=== PATIENT | female | born 1985 | race Caucasian/White ===

== ENCOUNTER 2025-04-17 20:13 | Emergency (ER) | payer OTHER, SELFPAY ==
[2025-04-17 20:22] VITALS: BP 114/84
--- NOTE | 2025-04-17 20:38 | ED.SKININJ ---
HPI-Injury
General
Chief Complaint: Bite
Time Seen by Provider: 04/17/25 20:38
History of Present Illness-Injury
Is this injury a work related problem?: No
Is pt an associate of [facility]?: No
Initial Injury comments:
FOCUSED PAST MEDICAL HISTORY
- No significant past medical history
REVIEW OF OLD RECORDS
- No old records available for review in [facility]
Note:
CHIEF COMPLAINT(S)
Dog bite to the upper lip.
HISTORY OF PRESENT ILLNESS
The patient is a 39-year-old female who presented to the emergency department following a dog bite from the family dog. The injury was described as uncharacteristic and occurred without warning. The bite resulted in a laceration on the upper lip,
specifically a 1.5 cm laceration at the central aspect that does not extend past the vermilion border but extends toward the white dry line. The patient reports no other injuries or symptoms.
PAST MEDICAL AND SURGICAL HISTORY
No significant medical history was discussed.
IMMUNIZATION HISTORY
The patient was unsure of their tetanus vaccination status and consented to receive an update as it had not been administered in the last 5-10 years. A tetanus vaccine will be administered.
MEDICATIONS
The patient will be given a dose of amoxicillin-clavulanate (Augmentin) to prevent infection from the dog bite.
PHYSICAL EXAM
General: Alert, no distress noted.
Skin: Laceration on the central aspect of the upper lip, extends 1.5 cm but does not cross the vermilion border and extends to the wet-dry line.
Eye Ears, Nose, Mouth and Throat: Oral mucosa moist, laceration on the lip.
PLAN
1. Administer local anesthesia to repair the lip laceration using sutures.
2. Update tetanus vaccination.
3. Prescribe amoxicillin-clavulanate (Augmentin) to prevent infection.
4. Educate the patient on wound care and the signs of infection.
DIFFERENTIAL DIAGNOSIS
The Differential Diagnosis includes, in no particular order and is not limited to:
1. Lip Trauma
2. Dog Bite
3. Laceration
4. Soft Tissue Infection
5. Rabies Exposure (given a bite but ruled out due to the vaccination status of the dog)
6. Skin Abrasion
7. Upper Respiratory Tract Infection (from other discussions)
8. Viral Exanthem
9. Bacterial Cellulitis
10. Oral Herpes Simplex Virus Infection
Disposition:
SUMMARY OF ENCOUNTER
The patient, a 39-year-old female, presented to the emergency department with a facial laceration on the upper lip due to a dog bite from the family pet. The laceration measured 1.5 cm and was noted not to extend beyond the vermilion border. The
injury occurred without prior warning and was considered uncharacteristic of the family dog. The laceration was managed in the emergency department with appropriate cleaning, irrigation, and suturing to prevent complications and promote healing.
Given the nature of the injury and the patients uncertain tetanus vaccination status, a tetanus vaccine was administered, and she was prescribed amoxicillin-clavulanate to prevent any potential infection.
PLAN
1. Administer local anesthesia and repair the lip laceration using four 5-0 Vicryl Rapide sutures.
2. Update tetanus vaccination.
3. Prescribe oral amoxicillin-clavulanate to prevent infection from the dog bite.
4. Educate the patient on proper wound care, including keeping the area clean and dry, avoiding unnecessary movement or trauma, and recognizing signs of infection such as increased redness, swelling, pain, or discharge.
MEDICATION RECONCILIATION
- Tetanus vaccine administered.
- Prescription for amoxicillin-clavulanate.
MEDICAL DECISION MAKING
-Complexity of Data Reviewed: Dog Bite, Laceration, Lip Trauma
-Data:
Category 1
- Clinical information was obtained from the patient.
Category 3
- Discussion of management with the patient regarding treatment options and prevention of infection.
-Risk:
- Prescription medication was prescribed�amoxicillin-clavulanate.
DIAGNOSIS
- Dog bite of lip with facial laceration, S01.511A
Phy Exam
Physical Exam
Physical Exam:
See HPI
Course
Orders/Labs/Results
Orders:
Orders
04/17/25 20:53
Amoxicillin 875 mg/Clav 125 mg [Augmentin 875 mg/125 mg] 1 tablet PO NOW STA
Tetanus/Diphth/Acelpertussis [Adacel] 0.5 ml IM .ONCE ONE
Vital Signs
Initial and Last Documented VS:
Initial Vital Signs
Temp Pulse Resp BP Pulse Ox
36.7 C 91 16 114/84 100
04/17/25 20:22 04/17/25 20:22 04/17/25 20:22 04/17/25 20:22 04/17/25 20:22
Last Documented Vital Signs
Temp Pulse Resp BP Pulse Ox
36.7 C 91 16 114/84 100
04/17/25 20:22 04/17/25 20:22 04/17/25 20:22 04/17/25 20:22 04/17/25 20:39
Procedures
Laceration Closure
Upper Lip:
Status of Wound: clean
Description of Wound Edges: sharp
Preparation: cleaned with saline and other (ChloraPrep)
Anesthesia: 1% Lidocaine
Revision/Debridement: routine- no revision
Wound exploration: explored to base- no FB
Type of Closure: single layer closure
Number of sutures: 4
Additional information:
5-0 Vicryl Rapide
*Pulse Oximetry
SaO2: 100
Oxygen Mode of Delivery: Room air
Patient hypoxic: no
*Critical Care Note
Total Time (30-74mins, 75-104mins- exclusive of procedures): Not Applicable
ED Attending Note
-
Portions of this chart may have been created with voice recognition software.� Occasional wrong word or��sound alike� substitutions may have occurred due to the inherent limitations of voice recognition software.
Discharge Plan
Departure
Patient Disposition: Home (Routine Discharge)
Date of Disposition: 04/17/25
Time of Disposition: 21:14
Patient with high blood pressure during this ER visit?: Yes
Discharge Problem:
Laceration of lip
Instructions: Animal Bites (DC), BLOOD PRESSURE
Prescriptions:
New
amoxicillin-pot clavulanate 875-125 mg tablet
1 tab PO BID Qty: 10 0RF
Activity Restrictions/Additional Instructions:
I placed 4 Vicryl Rapide sutures. If these do not dissolve on their own within the next 7 days, have your doctor remove these. Return if worse or other concerns. Next dose of antibiotics tomorrow morning.
Interventions
Interventions:
*Risk Screen - Suicide Last Done: 04/17/25 20:22
*General Assessment Last Done: 04/17/25 20:30
*Neglect/Abuse Screening Last Done: 04/17/25 20:22
*ED- Fall Risk Assessment Last Done: 04/17/25 20:30
*ED COVID-19 Vaccine History Last Done: 04/17/25 20:30
*ED Influenza Vaccine History Last Done: 04/17/25 20:30
ED-Skin Assessment Last Done: 04/17/25 20:31
Discharge Date and Time
Print Language: DOMINICAN
[2025-04-17] MEDS: AUGMENTIN 875 MG/125 MG 1 TABLET PO (21:14)
[2025-04-17] MEDS: ADACEL 0.5 ML IM (21:14)
== END 2025-04-17 21:26 | disposition home or self-care (01) ==
LOC: EMR 20:13
PROVIDERS: EMERGENCY PHYSICIAN Emergency Medicine
DX: S01.511A Laceration without foreign body of lip, initial encounter (principal); S01.85XA Open bite of other part of head, initial encounter; Z23 Encounter for immunization; W54.0XXA Bitten by dog, initial encounter
CPT/HCPCS: 99283; 90471; 12011; 90715

== ENCOUNTER 2025-04-24 13:22 | Emergency (ER) | payer OTHER, SELFPAY ==
[2025-04-24 13:31] VITALS: BP 127/81
--- NOTE | 2025-04-24 14:36 | ED.GENMED ---
History of Present Illness
General
Chief Complaint: Wound Check/Suture Removal
Source: patient
Exam Limitations: none
Time Seen by Provider: 04/24/25 14:25
History of Present Illness
History of Present Illness:
39yoF presenting for suture removal. Patient was seen in the ED 1 week ago for a lip laceration after a dog bite. 4 Vicryl sutures were placed to the upper lip. She was told to have the sutures removed in 1 week if they did not absorb. She tried
to make a PCP appointment but they were unable to get her in for an appointment and she is leaving for a trip in 2 days so decided to come to the ED. She has no other complaints and has finished her course of antibiotics.
Phy Exam
General Physical Exam
General Presentation: well appearing and no apparent distress
General Skin: warm and dry
General Habitus: normal
General Mental: alert
ENT Exam
ENT Exam: other (Well healing upper lip laceration. Two visible Vicryl sutures at superior aspect of wound with large scab noted inferior to this. No signs of infection. )
Pulmonary Exam
Pulmonary Exam: no respiratory distress
Neurological Exam
Neurological Exam: alert
[place] Coma Scale
Eye Opening: Spontaneous
Verbal Response: Oriented
Motor Response: Obeys Commands
GCS Total Score: 15
Skin Exam
Skin Exam: normal color and warm/dry
Psychiatric Exam
Psychiatric Exam: normal mood/affect
Course
Vital Signs
Initial and Last Documented VS:
Initial Vital Signs
Temp Pulse Resp BP Pulse Ox
98.7 F 93 16 127/81 100
04/24/25 13:31 04/24/25 13:31 04/24/25 13:31 04/24/25 13:31 04/24/25 13:31
Last Documented Vital Signs
Temp Pulse Resp BP Pulse Ox
98.7 F 93 16 127/81 100
04/24/25 13:31 04/24/25 13:31 04/24/25 13:31 04/24/25 13:31 04/24/25 14:37
MDM/Problems Addressed
Differential Diagnosis Includes:
39yoF here for suture removal. Lip laceration repaired 1 week ago with 4 Vicryl sutures. Only 2 sutures are visible on exam which were removed without difficulty. There is a large scab at the lower portion of the wound which was left in place to
allow for healing. Discussed with patient that the remaining 2 sutures should absorb over the next 1-2 weeks. She is in agreement with plan and was discharged in stable condition.
*Pulse Oximetry
SaO2: 100
Oxygen Mode of Delivery: Room air
Patient hypoxic: no
*Critical Care Note
Total Time (30-74mins, 75-104mins- exclusive of procedures): Not Applicable
ED Attending Note
-
Portions of this chart may have been created with voice recognition software.� Occasional wrong word or��sound alike� substitutions may have occurred due to the inherent limitations of voice recognition software.
Discharge Plan
Departure
Patient Disposition: Home (Routine Discharge)
Date of Disposition: 04/24/25
Time of Disposition: 14:39
Patient with high blood pressure during this ER visit?: No
Discharge Problem:
Encounter for removal of sutures
Instructions: Stitches Removal
Prescriptions:
No Action
amoxicillin-pot clavulanate 875-125 mg tablet
1 tab PO BID Qty: 10 0RF
Referrals:
UNKNOWN - PT DOES,NOT KNOW [Family Provider]
Activity Restrictions/Additional Instructions:
Two stitches were removed today. The other two should absorb over the next week or two.
Please follow-up with your family doctor if stitches do not absorb.
Interventions
Interventions:
*Risk Screen - Suicide Last Done: 04/24/25 14:41
*General Assessment Last Done: 04/24/25 14:41
*Neglect/Abuse Screening Last Done: 04/24/25 14:41
*ED COVID-19 Vaccine History Last Done: 04/24/25 14:41
*ED Influenza Vaccine History Last Done: 04/24/25 14:41
[facility] Fall Risk Assessment Tool Last Done: 04/24/25 14:42
*Nursing Disposition Last Done: 04/24/25 14:42
ED-Skin Assessment Last Done: 04/24/25 14:41
Discharge Date and Time
Discharge Date/Time: 04/24/25 14:43
Print Language: JORDANIAN
== END 2025-04-24 14:43 | disposition home or self-care (01) ==
LOC: EMR 13:22
PROVIDERS: EMERGENCY PHYSICIAN Emergency Medicine
DX: S01.511D Laceration without foreign body of lip, subsequent encounter (principal); W54.0XXD Bitten by dog, subsequent encounter
CPT/HCPCS: 99281